=== PATIENT | female | born 1955 | race African-American/Black ===

== ENCOUNTER 2018-07-13 06:42 | Day surgery (SDC) | payer MEDICARE, BC ==
[~2018-07-13] VITALS: Ht 172.7 cm; Wt 90.7 kg
[2018-07-13] MEDS ORDERED: MIDAZOLAM HCL 2 MG/2 ML VIAL ONE (07:32)
[2018-07-13] MEDS ORDERED: ASPIRIN/SOD BICARB/CITRIC ACID 324MG TAB EFF ONE (07:32)
[2018-07-13] MEDS ORDERED: FENTANYL CITRATE/PF 50MCG/ML 2ML VIAL ONE (07:32)
[2018-07-13] MEDS ORDERED: LIDOCAINE HCL 1% 20ML VIAL (Pyxis) INJ ONE (07:33)
[2018-07-13] MEDS ORDERED: IODIXANOL 320MG/ML 100 ML BOTTLE IV ONE (07:33)
[2018-07-13] MEDS ORDERED: ASPI-1159 MT (07:43)
[2018-07-13] MEDS ORDERED: PRAV20TA57 MT (07:43)
[2018-07-13] MEDS ORDERED: MULT-1116 MT (07:43)
[2018-07-13] MEDS ORDERED: ACETAMINOPHEN 325MG TABLET PO PRN (08:45)
[2018-07-13] MEDS ORDERED: ONDANSETRON HCL 4MG/2ML INJ IV PRN (08:45)
[2018-07-13] MEDS ORDERED: MORPHINE SULFATE 4 MG/ML CPJ (NOT FOR IM USE) IV PRN (08:45)
[2018-07-13] MEDS ORDERED: HEPARIN SODIUM 1,000 UNIT/1ML VIAL IV ONE (13:25)
[2018-07-13] MEDS ORDERED: NITROGLYCERIN 50MCG/ML 10ML VIAL (CATH LAB) IV ONE (13:25)
[2018-07-13] MEDS ORDERED: NICARDIPINE 100MCG/ML 10ML VIAL (CATH LAB) IV ONE (13:25)
== END 2018-07-13 12:55 | disposition home or self-care (01) ==
LOC: CCL 06:42
PROVIDERS: ATTEND Specialist
DX: R07.9 Chest pain, unspecified (principal); R94.39 Abnormal result of other cardiovascular function study; R00.2 Palpitations; I10 Essential (primary) hypertension; E78.00 Pure hypercholesterolemia, unspecified; Z79.899 Other long term (current) drug therapy; Z82.49 Family history of ischemic heart disease and other diseases of the circulatory system
CPT/HCPCS: 93458; 99152; C1769; C1887; C1893; J1644; J2250; J3010; J3490; Q9967; G0500

== ENCOUNTER 2024-07-30 08:11 | Emergency (ER) | payer MEDICARE, BC ==
[~2024-07-30] VITALS: Ht 175.3 cm; Wt 79.0 kg
[~2024-07-30 08:11] MED LIST: ASPI-1497 MT; MULT-1116 MT; PRAV20TA57 MT
[2024-07-30 08:13] VITALS: O2SAT 99
[2024-07-30 08:53] LABS: BASOPHILS % 0.6 % (0.0-2.0); HEMATOCRIT. 39.6 % (36.0-48.0); HEMOGLOBIN. 12.9 g/dL (12.0-16.0); MEAN CORPUSCULAR HEMOGLOBIN 27.7 pg (28.0-32.0); MEAN CORPUSCULAR HGB CONC 32.5 g/dL (31.0-37.0); MEAN CORPUSCULAR VOLUME 85.4 fL (81.0-99.0); MONOCYTES % 12.6 % (2.0-8.0); NEUTROPHILS % 48.8 % (40.0-76.0); PLATELET 220 x1000/uL (130-400); RED BLOOD CELL COUNT 4.64 mill/uL (4.2-5.4); RED CELL DISTRIBUTION WIDTH 14.7 % (11.6-14.6); WHITE BLOOD COUNT 5.9 x1000/uL (4.5-11.0)
[2024-07-30 09:00] LABS: CHLORIDE 107 mEq/L (98-107); POTASSIUM 3.7 mEq/L (3.5-5.1); SODIUM 141 mEq/L (136-145)
[2024-07-30 09:01] LABS: CALCIUM 9.3 mg/dL (8.7-10.4); CARBON DIOXIDE 27 mEq/L (21-32)
[2024-07-30 09:06] LABS: CREATININE 0.9 mg/dL (0.6-1.0); GLUCOSE 116 mg/dL (70-105); UREA NITROGEN BLOOD 16 mg/dL (9-23)
[2024-07-30 09:07] LABS: TROPONIN I HIGH SENSITIVITY 32 ng/L (3.0-34)
[2024-07-30 10:42] VITALS: BP 134/59; PULSE 63; RESP 14; O2SAT 100
== END 2024-07-30 12:30 | disposition left against medical advice (07) ==
LOC: ER 08:11 → UNDOADMIN 10:25 → 7WST 10:25 → EDBEDREQ 10:28 → UNDODISIN 12:30 → ER 12:30
DX: R00.2 Palpitations (principal); Z79.899 Other long term (current) drug therapy
CPT/HCPCS: 36415; 71045; 80048; 83880; 84484; 85025; 93005; 99285